=== PATIENT | female | born 1995 ===

== ENCOUNTER 2017-08-30 00:16 | Emergency (ER) | payer BC ==
[2017-08-30 00:17] VITALS: BMI 25.0
--- NOTE | 2017-08-30 01:07 | ED PDOC ---
HPI: Psych/Substance Abuse Time Seen by Provider: 08/30/17 00:27 Chief Complaint (Nursing): Psychiatric Evaluation Chief Complaint (Provider): Suicidal Ideation History Per: Patient History/Exam Limitations: no limitations Onset/Duration Of Symptoms: Days (7 days ago) Current Symptoms Are (Timing): Still Present Additional Complaint(s): 22 yo female with a history of bipolar disorder and asthma, presents to the ED for suicidal ideation and depression, onset of 7 days ago. Patient reports that she had plans to overdose on own lithium medication and had thoughts of cutting herself. However, she did not fill her prescription for lithium due to the fear that she might give in to impulse. She denies any auditory hallucinations and is not on any other psych medications. Past Medical History Reviewed: Historical Data, Nursing Documentation, Vital Signs Vital Signs: Last Vital Signs Temp 97.4 F L 08/30/17 00:22 Pulse 91 H 08/30/17 00:22 Resp 18 08/30/17 00:22 BP 128/85 08/30/17 00:22 Pulse Ox 100 08/30/17 00:22 - Medical History PMH: Asthma, Bipolar Disorder Denies: Chronic Kidney Disease - Surgical History Surgical History: Appendectomy - Family History Family History: States: Unknown Family Hx - Social History Current smoker - smoking cessation education provided: No Ex-Smoker (has not smoked in the last 12 months): No Alcohol: None Drugs: Denies - Home Medications Home Medications: Ambulatory Orders Medication Instructions Recorded Albuterol HFA [Ventolin HFA 90 2 puff IH PRN PRN 03/27/16 mcg/actuation (8 g)] Fluticasone Propionate [Flonase] 2 spr HELEN BID 03/27/16 Mometasone/Formoterol [Dulera] 2 puff IH BID 03/27/16 Amoxicillin/Clavulanate [Augmentin 1 tab PO DAILY #7 tab 03/28/16 875 MG-125 MG] oxyCODONE/Acetaminophen [Percocet 1 ea PO Q6 PRN #20 tab 03/28/16 5/325 mg Tab] - Allergies Allergies/Adverse Reactions: Allergies Allergy/AdvReac Type Severity Reaction Status Date / Time No Known Allergies Allergy Verified 03/26/16 17:42 Review of Systems ROS Statement: Except As Marked, All Systems Reviewed And Found Negative Constitutional: Negative for: Fever Psych: Positive for: Depression, Suicidal ideation. Negative for: Other ( auditory hallucinations) Physical Exam - Reviewed Nursing Documentation Reviewed: Yes Vital Signs Reviewed: Yes - Physical Exam Appears: Positive for: Well, Non-toxic, No Acute Distress Head Exam: Positive for: ATRAUMATIC, NORMAL INSPECTION, NORMOCEPHALIC Skin: Positive for: Normal Color, Warm, DRY Eye Exam: Positive for: EOMI, Normal appearance, PERRL ENT: Positive for: Normal ENT Inspection Neck: Positive for: Normal, Painless ROM Cardiovascular/Chest: Positive for: Regular Rate, Rhythm. Negative for: Murmur Respiratory: Positive for: Normal Breath Sounds. Negative for: Respiratory Distress Gastrointestinal/Abdominal: Positive for: Normal Exam, Soft. Negative for: Tenderness Back: Positive for: Normal Inspection. Negative for: L CVA Tenderness, R CVA Tenderness Extremity: Positive for: Normal ROM. Negative for: Pedal Edema, Deformity Neurologic/Psych: Positive for: Alert, Oriented. Negative for: Motor/Sensory Deficits - ECG O2 Sat by Pulse Oximetry: 100 (RA) Pulse Ox Interpretation: Normal Medical Decision Making Medical Decision Making: Time: --00:28 Impression: --22 yo female with suicidal ideation in setting of depression and bipolar disorder. Plan: --drug screen, urine --cisis eval --Ed urine dip --urine preg --1:1 obs for suicide precaution Reassess -- Patient was evaluated by crisis and is stable for discharge home. Diagnosis: Bipolar disorder Scribe Attestation: Documented by Guillermo Reynolds acting as a scribe for Agustín Giron MD. Provider Attestation: All medical record entries made by the Scribe were at my direction and personally dictated by me. I have reviewed the chart and agree that the record accurately reflects my personal performance of the history, physical exam, medical decision making, and the department course for this patient. I have also personally directed, reviewed, and agree with the discharge instructions and disposition. Disposition - Clinical Impression Clinical Impression: Bipolar disorder - Disposition Disposition: Routine/Home Disposition Time: Condition: STABLE Instructions: Bipolar Disorder Forms: Qoof (Sinhala)
[2017-08-30 02:04] LABS: BARBITURATES, UR NEGATIVE (NEGATIVE); BENZODIAZEPINES, UR NEGATIVE (NEGATIVE); OPIATES, UR NEGATIVE (NEGATIVE); PHENCYCLIDINE, UR NEGATIVE (NEGATIVE)
[2017-08-30 02:24] VITALS: BP 112/64; PULSE 82; RESP 14; TEMP 97.9; O2SAT 98
== END 2017-08-30 02:24 | disposition home or self-care (01) ==
LOC: H.ER 00:16
DX: F31.9 Bipolar disorder, unspecified (principal); R45.851 Suicidal ideations
CPT/HCPCS: 81025; 99283; G0480